=== PATIENT | male | born 2000 | race Caucasian/White ===

== ENCOUNTER 2022-05-31 18:03 | Emergency (ER) | payer OTHER ==
[~2022-05-31] VITALS: Ht 180.3 cm; Wt 99.8 kg
[2022-05-31 18:27] VITALS: BP 157/57
--- NOTE | 2022-05-31 18:35 | NUR ---
[facility] PHONE #[phone]
--- NOTE | 2022-05-31 19:35 | NUR ---
Dr. Burt examining patient.
[2022-05-31] MEDS ORDERED: ACET-2619 PO (19:59)
[2022-05-31 22:20] VITALS: BP 125/78
== END 2022-05-31 22:20 | disposition home or self-care (01) ==
LOC: MED 18:03
DX: S06.0X0A Concussion without loss of consciousness, initial encounter (principal); W18.30XA Fall on same level, unspecified, initial encounter; Y93.89 Activity, other specified; Y92.89 Other specified places as the place of occurrence of the external cause; Y99.8 Other external cause status
CPT/HCPCS: 70450; 99284